=== PATIENT | female | born 1990 | race Caucasian/White ===

== ENCOUNTER 2020-09-29 20:59 | Emergency (ER) | payer BC ==
--- NOTE | 2020-09-29 21:32 | ER Document Report ---
ED Medical Screen (RME) - General Chief Complaint: Vaginal Bleeding Stated Complaint: VAGINAL BLEEDING-7 WEEKS Time Seen by Provider: 09/29/20 21:31 Mode of Arrival: Ambulatory Information source: Patient Notes: Patient presents 7 weeks . Patient has been receiving fertility treatments. Patient reports vaginal bleeding with cramping that started this evening. Patient denies any urinary symptoms. I have greeted and performed a rapid initial assessment of this patient. A comprehensive ED assessment and evaluation of the patient, analysis of test results and completion of the medical decision making process will be conducted by additional ED providers. - Related Data Allergies/Adverse Reactions: No Known Allergies Allergy (Unverified 09/29/20 21:31) Physical Exam - Vital signs Vitals: Temp Pulse Resp BP Pulse Ox 98.1 F 81 16 114/58 L 100 09/29/20 21:08 09/29/20 21:08 09/29/20 21:08 09/29/20 21:08 09/29/20 21:08 - Abdominal Tenderness: Tender - Lower pelvic Course - Vital Signs Vital signs: Temp Pulse Resp BP Pulse Ox 98.1 F 81 16 114/58 L 100 09/29/20 21:08 09/29/20 21:08 09/29/20 21:08 09/29/20 21:08 09/29/20 21:08
[2020-09-29 22:05] LABS: ABSOLUTE EOSINOPHILS # (AUTO) 0.1 10^3/uL (0.0-0.6); ABSOLUTE LYMPHOCYTES (AUTO) 1.6 10^3/uL (0.5-4.7); ABSOLUTE MONOCYTES (AUTO) 0.6 10^3/uL (0.1-1.4); ABSOLUTE NEUT (AUTO) 5.2 10^3/uL (1.7-8.2); BASOPHILS % (AUTO) 0.5 % (0-2); EOSINOPHILS % (AUTO) 1.4 % (0-6); HEMATOCRIT 35.8 % (36.0-47.0); HEMOGLOBIN 12.6 g/dL (12.0-15.5); LYMPHOCYTES % (AUTO) 21.4 % (13-45); MEAN CORPUSCULAR HGB CONC 35.2 g/dL (32.0-36.0); MEAN CORPUSCULAR VOLUME 94 fl (80-97); MONOCYTES % (AUTO) 7.6 % (3-13); PLATELET COUNT 319 10^3/uL (150-450); RED BLOOD COUNT 3.82 10^6/uL (3.72-5.28); RED CELL DISTRIBUTION WIDTH 12.2 % (11.5-14.0); SEGMENTED NEUTROPHILS % (AUTO) 69.1 % (42-78); TOTAL CELLS COUNTED % (AUTO) 100 %; WHITE BLOOD COUNT 7.5 10^3/uL (4.0-10.5)
[2020-09-29 22:13] LABS: APPEARANCE,URINE SLIGHTLY-CLOUDY; BILIRUBIN,URINE NEGATIVE (NEGATIVE); COLOR,URINE YELLOW; GLUCOSE, URINE NEGATIVE (NEGATIVE); KETONES,URINE 20 mg/dL (NEGATIVE); LEUKOCYTE ESTERASE,URINE NEGATIVE (NEGATIVE); NITRITE,URINE NEGATIVE (NEGATIVE); PROTEIN,URINE 30 mg/dL (NEGATIVE); URINE SPECIFIC GRAVITY 1.004; UROBILINOGEN,URINE NEGATIVE mg/dL (<2.0)
--- NOTE | 2020-09-29 23:56 | RADIOLOGY REPORT (SQ) ---
Ultrasound OB transvaginal on 09/29/2020 at 11:01 PM CLINICAL INDICATION: Vaginal bleeding and cramping, COMPARISON: None FINDINGS: Multiple sonographic images are obtained throughout the pelvis by transvaginal approach, both transverse and sagittal images are obtained. The uterus is retroverted/retroflexed. Uterus measures approximately 9.1 x 5.6 x 6.4 cm. Right ovary measures approximately 5.1 x 3.5 x 3.6 cm. There is a 3.1 x 3.5 x 2.5 cm simple appearing right ovarian cyst, this has a benign appearance with no follow-up recommended. Flow is demonstrated within the right ovary. Left ovary is not visualized and reportedly has been surgically removed. No adnexal mass or fluid collection is noted. There is a single early intrauterine with a gestational sac, yolk sac and pole. Estimated gestational age by crown-rump length measurement is an approximate six week four day gestation. Positive cardiac activity is noted with a heart rate of 124 bpm. Gestational sac shape is unremarkable. Gestation is too early for placental evaluation. There is an irregular hypoechoic area surrounding moderate amount of the gestational sac consistent with a moderate size subchronic hemorrhage measuring up to 2.7 x 1.4 x 3.4 cm. IMPRESSION: Single living approximate six week four day intrauterine with moderate-sized adjacent subchronic hemorrhage.
--- NOTE | 2020-09-30 02:14 | ER Document Report ---
ED GI/ - General Chief Complaint: Vaginal Bleeding Stated Complaint: VAGINAL BLEEDING-7 WEEKS Time Seen by Provider: 09/29/20 21:31 Primary Care Provider: NIKHIL BLACK DO [Primary Care Provider] - Follow up as needed Mode of Arrival: Ambulatory Notes: CHIEF COMPLAINT: Vaginal bleeding tonight HPI: 30-year-old female presenting for evaluation of vaginal bleeding site. Patient states she was getting ready for bed and felt bright red blood coming from the vagina. States it has tapered off some and is now darker red. Has had very slight pelvic cramping. Patient states that she had an ultrasound with her JEWELRY BENCH WORKER at [facility] yesterday and baby did have a heartbeat. Patient with a history of left oopherectomy. History of right ovarian cyst. history of en dometriosis ROS: See HPI - all other systems were reviewed and are otherwise negative Constitutional: no fever or recent illness GI: no vomiting, no diarrhea : no dysuria, no vaginal discharge, positive vaginal bleeding Integumentary: no rash Allergy: no hives MEDICATIONS: I agree with the patient medications as charted by the RN. ALLERGIES: I agree with the allergies as charted by the RN. PAST MEDICAL HISTORY/PAST SURGICAL HISTORY: Reviewed and agree as charted by RN. SOCIAL HISTORY: Reviewed and agree as charted by RN. FAMILY HISTORY: No significant familial comorbid conditions directly related to patient complaint EXAM: Reviewed vital signs as charted by RN. CONSTITUTIONAL: Alert and oriented and responds appropriately to questions. 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 External genitalia normal. No skin lesions noted. Pelvic Exam: Small amount of dark red blood in the vaginal vault no visible bright red blood cervical os is closed.. No purulent discharge. Cervix appears normal. No CMT. No lesions or masses. Uterus enlarged consistent with 6- week gestation and non tender. Right adnexa mildly enlarged and mildly tender, left adnexa not tender BACK: The back appears normal and is non-tender to palpation, there is no CVA tenderness EXT: Normal ROM in all joints; non-tender to palpation; no cyanosis, no effusions, no edema SKIN: Normal color for age and race; warm; dry; good turgor; no acute lesions noted NEURO: Moves all extremities equally; Motor and sensory function intact PSYCH: The patient's mood and manner are appropriate. Grooming and personal hygiene are appropriate. MDM: 30-year-old female presenting for evaluation of vaginal bleeding tonight. Patient noted to have a 6-week 4-day IUP on ultrasound with a moderate subchorionic hemorrhage. Discussed at length with the patient. Patient uterus is appropriate for dates. Bleeding precautions discussed. Will discharge to follow-up with her JEWELRY BENCH WORKER - Related Data Allergies/Adverse Reactions: No Known Allergies Allergy (Unverified 09/29/20 21:31) Home Medications: prenatals Past Medical History - General Information source: Patient - Social History Smoking Status: Never Smoker Frequency of alcohol use: None Drug Abuse: None Family History: Reviewed & Not Pertinent Patient has homicidal ideation: No Physical Exam - Vital signs Vitals: Temp Pulse Resp BP Pulse Ox 98.1 F 81 16 114/58 L 100 09/29/20 21:08 09/29/20 21:08 09/29/20 21:08 09/29/20 21:08 09/29/20 21:08 Course - Re-evaluation Re-evalutation: 09/30/20 02:24 Notified by nursing that patient wished to leave prior to her wet prep returning, I did review her record again and it does appear she has vaginitis she declines oral Flagyl in the emergency department tonight. I will call in a prescription for her. - Vital Signs Vital signs: Temp Pulse Resp BP Pulse Ox 98.1 F 72 16 143/64 H 100 09/30/20 00:06 09/30/20 00:06 09/30/20 00:06 09/30/20 00:06 09/30/20 00:06 - Laboratory Result Diagrams: 09/29/20 21:44 Laboratory results interpreted by me: 09/29/20 09/29/20 09/29/20 21:44 21:44 21:44 Hct 35.8 L Beta HCG, Quant 43037.00 H Urine Protein 30 H Urine Ketones 20 H Urine Blood LARGE H Discharge - Discharge Clinical Impression: Vaginal bleeding during , Bacterial vaginitis Subchorionic hemorrhage in first trimester Qualifiers: Fetus number: single or unspecified fetus Qualified Code(s): O41.8X10 - Other specified disorders of amniotic fluid and membranes, first trimester, not applicable or unspecified Condition: Stable Disposition: HOME, SELF-CARE Additional Instructions: It was noted tonight that you have bacterial vaginitis take the Flagyl to treat this. Follow-up with your JEWELRY BENCH WORKER for further evaluation and treatment call for appointment. Return if you have worsening vaginal bleeding where you are saturating greater than 2 pads per hour for 2 consecutive hours. It was noted on your ultrasound tonight that you have a subchorionic hemorrhage which is likely why you are having the vaginal bleeding Prescriptions: Metronidazole [Flagyl 500 mg Tablet] 500 mg PO BID #14 tablet Metronidazole [Flagyl 500 mg Tablet] 500 mg PO BID #14 tablet Referrals: NIKHIL BLACK, [Primary Care Provider] - Follow up as needed
[2020-09-30 02:18] LABS: BACTERIA (WET MOUNT) 4+ BACTERIA SEEN; EPITHELIALS (WET MOUNT) 3+ EPITHELIALS SEEN; RBCS (WET MOUNT) 4+ RBCS SEEN; T.VAGINALIS (WET MOUNT) NO TRICHOMONAS SEEN; WBCS (WET MOUNT) 1+ WBCS SEEN; YEAST (WET MOUNT) NO YEAST SEEN
[2020-09-30 02:34] VITALS: BP 111/57
[2020-09-30 03:43] LABS: CHLAM PCR NOT DETECTED (NOT DETECT)
== END 2020-09-30 02:35 | disposition home or self-care (01) ==
LOC: ER 20:59
DX: O23.591 Infection of other part of genital tract in pregnancy, first trimester (principal); B96.89 Other specified bacterial agents as the cause of diseases classified elsewhere; O46.91 Antepartum hemorrhage, unspecified, first trimester; O41.8X10 Other specified disorders of amniotic fluid and membranes, first trimester, not applicable or unspecified; O26.891 Other specified pregnancy related conditions, first trimester; R10.2 Pelvic and perineal pain; Z3A.01 Less than 8 weeks gestation of pregnancy; Z90.721 Acquired absence of ovaries, unilateral
CPT/HCPCS: 36415; 76817; 81001; 84702; 85025; 86900; 86901; 87210; 87491; 87591; 99284